=== PATIENT | female | born 1980 | race Hispanic/Latino ===

== ENCOUNTER 2016-06-01 07:08 | Inpatient (IN) | payer MEDICAID ==
[~2016-06-01] VITALS: Ht 142.2 cm; Wt 66.2 kg
[~2016-06-01 07:08] MED LIST: Carboprost 250 mCg/mL Inj IM PRN; Hemorrhage Kit, Post Partum XX ONE; Methylergonovine 0.2 mg/mL Inj IM PRN; OMEP20CA11 PO; Oxytocin 10 Unit/mL Inj IM PRN; PREN1TAB47; Sodium Citrate-Citric Acid 15 mL Solution PO SCH; antacid PO
[2016-06-01] MEDS: Lactated Ringer's 1,000 ML IV SCH ×4 (07:39→19:41)
[2016-06-01 07:51] LABS: Mean Corpuscular Hemoglobin 27.5 pg (27.0-35.0); Mean Corpuscular Volume 81.7 fL (81-100)
[2016-06-01] MEDS ORDERED: CeFAZolin Inj 2 GM in IV Premix 1 EACH IV ONE (09:00)
[2016-06-01] MEDS ORDERED: Sodium Citrate-Citric Acid 15 mL Solution PO SCH (09:03)
[2016-06-01] MEDS ORDERED: fentaNYL-PF 50 mCg/mL 2 mL Inj IVPUSH PRN (10:00)
[2016-06-01] MEDS ORDERED: EPHEDrine Sulfate 50 mg/mL Inj IVPUSH PRN (10:00)
[2016-06-01] MEDS ORDERED: Atropine 0.4 mg/mL Inj IV PRN (10:00)
[2016-06-01] MEDS ORDERED: Ondansetron 2 mg/mL 2 mL Inj IVPUSH PRN (10:00)
--- NOTE | 2016-06-01 10:00 | PCM.HPANE ---
Patient Data Date of Service: Jun 01, 2016 (929) Surgeon Admitting Provider:Macy Rachel MD Attending Provider:Macy Rachel MD Primary Care Physician:Gem Other Provider:Deedee Garcia Anesthesia Reason for Visit Repeat C/S Wants Tubal Ligation REPEAT C/S WANTS TUBAL LIGATION Ht/WT & BMI Height (Feet): 4 Height (Inches): 10 Weight (Kilograms): 65 Body Mass Index Allergies Uncoded Allergies: LEVO (Allergy, Unknown, 12/01/15) Past Anesthesia History Anesthesia History: Denies:: Abnormal Airway, Anesthesia Reactions, Difficult Intubation, Fam Anesthesia Reaction, Fam Malignant Hypertherm, Malignant Hyperthermia Diabetes History Hx Diabetes?: No MRSA MRSA: No Medications Hypertension Medication: No Home Meds Incl Beta Sole: No Active Scripts Omeprazole 20 Mg Capsule.dr20 Mg PO DAILY #30 CAPSULE Ref 0 Prov:Jace Harvey MD 12/14/15 Reported Medications [antacid] No Conflict Check PO PRN Ref 0 01/16/09 Vit/Fe Fumarate/Fa-Expunged Drug, Do (-Expunged Drug, Do Not Renew!)1 Tab Tablet DAILY Ref 0 01/16/09 History History of ENT Problems?: No HEENT History: Denies:: Abnormal Airway Cataracts Difficult Intubation Dysphagia Glaucoma Hearing Problem Sinus Problem TMJ Denture Type: None Teeth Condition: Within Normal Limits Hx of Heart Problems?: No Cardiovascular History: Denies:: AICD Abdominal Aortic Aneurism Atrial Fibrillation Cardiac Surgery Chest Pain Congestive Heart Failure Coronary Artery Disease Edema Heart Murmur Hypertension Irregular Heartbeat Pacemaker Peripheral Vascular Rheumatic Fever Thrombophlebitis Valvular Heart Disease Hx of Respiratory Problem?: No Respiratory History: Denies:: Asthma COPD Chest Surgery Cough Dyspnea Emphysema Hemoptysis Oxygen Administration Pneumonia Pulmonary Embolism Tuberculosis Use of C-PAP Machine Use of Inhalers / NEBS Hx Neurologic Problems?: No Neurological History: Denies:: Alzheimer's Disease CVA Dementia Dizziness Headaches Multiple Sclerosis Parkinson's Disease Peripheral Neuropathy Seizures TIA Hx of GI Problems?: No Gastrointestinal History: Denies:: Cirrhosis Diverticulitis Gall Bladder Disease Gastroesphageal Reflux Gastrointestinal Bleeding Heartburn Hepatitis Hiatal Hernia Liver Disease Rectal Bleeding Hx of Problems?: No Genitourinary History: Denies:: HX of Hemodialysis Kidney Stones Urinary Tract Infection Female Hx: Positive for:: Currently (repeat Csection) Hx Musculoskeletal Problems?: No Musculoskeletal History: Denies:: Back Injury Degenerative Joint Fibromyalgia Joint Replacement Musculoskeletal Trauma Myasthenia Gravis Osteoarthritis Rheumatoid Arthritis Systemic Lupus Hx of Psycho/Social Problems?: No Psycho Social History: Denies:: Anxiety Bipolar Disorder Hx Depression Suicide Attempt Hx Surgeries?: Yes (Csection x2) Hx Any Other Health Problems?: No Other History: Denies:: Cancer Endocrine Disease Hospitalization Thyroid Disease History Blood Transfusions: Denies:: Accept Blood Products? Blood Transfuse Reaction Blood Transfusions Hx Diabetes: No Hx Alcohol Use: No Smoking Status: Unknown if Ever Smoker Stop/Bang Treated for Sleep Apnea?: No Do You Have a CPAP Machine?: No S-Snoring: Do You Snore Loudly: No T-Tired: feel tired, fatigued: No O-Obsered: Observed not breath: No P-Blood Pressure: treated: No JOSEFA Risk Assessment: Low Risk, <3 Yes Risk Assessment Category Category 1A: Patient has history of documented sleep apnea, and HAS NOT received any narcotic, sedative or anesthesia administration during this stay. Category 1B: Patient has history of documented sleep apnea, and HAS received any narcotic , sedative or anesthesia administration during this stay Category 2: Patient has SUSPECTED Obstructive Sleep Apnea, and HAS received any narcotic , sedative or anesthesia administration during this stay. Category 3: Patient has SUSPECTED Obstructive Sleep Apnea and HAS NOT received narcotic, sedative or anesthesia administration during this stay. Category 4: Outpatient in Procedural Areas with known sleep apnea or who screen positive for High Risk via the STOP/BANG questionnaire. Exam Exam General Appearance: Alert, Oriented X3, Cooperative HEENT/AIRWAY: MP 1 Lungs: Clear to Auscultation Heart: Exam Unremarkable Meds/Labs/Diagnostics Admission Meds Current Medications Lactated Ringer's (Lr) 1,000 ml @ 125 mls/hr Q8H IV Last administered on 09:08; Start 06/01/16 at 06:00; Stop 06/01/16 at 13:59 Citric Acid/ Sodium Citrate (Bicitra) 30 ml PREOP PO Last administered on 09:09; Start 06/01/16 at 09:03; Stop 06/01/16 at 09:04; Status DC Labs Test 06/01/16 07:30 White Blood Count 6.5th/mm3 (3.8-10.1) Red Blood Count 4.69mil/mm3 (3.90-5.20) Hemoglobin 12.9g/dL (12.0-15.6) Hematocrit 38.3% (35.0-46.0) Mean Corpuscular Volume 81.7fL (81-100) Mean Corpuscular Hemoglobin 27.5pg (27.0-35.0) Mean Corpuscular Hemoglobin Concent 33.7% (32.0-37.0) Red Cell Distribution Width 14.5% (12.3-15.4) Platelet Count 231bil/L (150-400) Plan Impression Patient chart reviewed, patient interviewed and anesthestic plan with risks, benefits, and alternatives discussed, and informed consent obtained. NPO per Anesth. Guidelines: Yes ASA Physical Status: ASA2 Mod Systemic Disease Anesthetic Plan: SAB Bene/Risks/Altern/Consents: Yes HP Complete Prior to Induction: Yes Kolby Ward MD Jun 01, 2016 10:00
--- NOTE | 2016-06-01 10:00 | HP ---
[address] [address] HISTORY AND PHYSICAL PATIENT: PREETI FULLER : 1980 MR#: [id number] ADMIT: 06/01/2016 JOB ID: [id number] CHIEF COMPLAINT: The patient presented for scheduled repeat section. HISTORY OF PRESENTING ILLNESS: This is a 35 years old 3, para 2-0-0-2 at 39 weeks and 0 days with expected date of delivery of June 08, 2016 dated by last menstrual period and consistent with 8 week ultrasound. complicated with: 1. Prior 2 sections. 2. GERD gallbladder disease was ruled out except for small sludge by ultrasound and symptoms improved with ranitidine. Hepatitis panel negative. Possible fatty liver on ultrasound. 3. Advanced maternal age. 4. History of preeclampsia in previous . 5. Constipation. 6. Elevated 1 hour diabetes screening, 3 hours glucose tolerance test within normal limits. 7. Vitamin D deficiency. Today the patient denies any complaints. No contractions. No vaginal bleeding. No loss of fluid. Good movement. PAST GYNECOLOGIC HISTORY: Last menstrual period September 02, 2015 regular menstrual cycles was not on control at the time of conception. No history of abnormal Pap smear. Last Pap smear was April 16, 2014. PAST OBSTETRIC HISTORY: 1. First was 2016, term , delivered via primary section for arrest of dilatation. Outcome female infant 8.4 pounds, had epidural. Delivery was at [facility]. was complicated with preeclampsia and anemia. 2. Second was 2008. It was a term delivered via repeat section under regional anesthesia. Outcome female infant delivered at [facility] weight 8 pounds 3 ounces. Complications none. The indication for the was previous section and declined vaginal after section. PAST MEDICAL HISTORY: GERD, constipation, low vitamin D, history of preeclampsia in previous . REVIEW OF SYSTEMS: A 10-point review of systems negative except for the items mentioned in the history of presenting illness. FAMILY HISTORY: Noncontributory. PAST SURGICAL HISTORY: Previous sections x2. ALLERGIES: Allergic to FLUOROQUINOLONE reaction rash. MEDICATIONS: 1. vitamins. 2. Vitamin D 2000 units daily. 3. Ranitidine p.r.n. LABORATORIES: Blood type is O positive. Antibody screening negative. Rubella immune. RPR nonreactive. Hepatitis B surface antigen negative. HIV nonreactive. Urine culture contaminated, no evidence of infection. Hematocrit 35% at 26 weeks. Quad screen negative for trisomy 21, 18, and neural tube defect. Gonorrhea and chlamydia screening negative on December 14, 2015. Group B strep positive on May 17, 2016. Diabetes screening at 26 weeks was elevated at 171, 3 hour glucose tolerance test within normal limits; fasting 61, 1 hour 160, 2 hours 123, 3 hours 62. Vitamin D low at 19 on January 13, 2016. Hepatitis panel within normal limits. Baseline preeclampsia labs within normal limits. May 03, 2016 protein creatinine ratio 0.089 within normal limits. PHYSICAL EXAMINATION: Alert and oriented to time, place, and person. Vital signs: Blood pressure 120/62, heart rate 66, temperature 36.5. heart tones baseline 130 moderate variability, positive accelerations and no decelerations category 1. Contractions every 7-8 minutes. Head normocephalic, atraumatic. Neck is supple. Chest equal air entry bilaterally. No added sounds. Cardiovascular regular rate and rhythm, S1 plus S2 plus zero. Abdomen gravid, no tenderness. Lower extremities +1 edema bilaterally. ASSESSMENT: This is a 36 years old female 3, para 2-0-0-2 at 39 weeks and 0 days with previous 2 sections. Multiparity desires permanent sterilization. Here for a scheduled repeat section and bilateral tubal ligation. The risks, benefits, and alternatives of repeat section and tubal ligation were reviewed with the patient in details. All questions were answered. Informed consent were signed. Sterilization consent was signed on March 14, 2016, and the patient was counseled again today about risk and benefits and alternatives of tubal ligation including LARC and male sterilization. Patient desires to proceed with a tubal ligation and repeat section as scheduled today. All questions were answered. Surgical consent was signed. TANK
[2016-06-01] MEDS ORDERED: LANOlin HPA 7 Gm Ointment TOPICAL PRN (11:45)
[2016-06-01] MEDS ORDERED: Oxytocin 30 Units/500 mL LR 30 UNITS in IV Premix 1 EACH IV PRN (11:45)
[2016-06-01] MEDS ORDERED: Hemorrhage Kit, Post Partum XX ONE (11:45)
[2016-06-01] MEDS ORDERED: Methylergonovine 0.2 mg/mL Inj IM PRN (11:45)
[2016-06-01] MEDS ORDERED: Oxytocin 10 Unit/mL Inj IM PRN (11:45)
[2016-06-01] MEDS ORDERED: Carboprost 250 mCg/mL Inj IM PRN (11:45)
[2016-06-01] MEDS ORDERED: Sodium Chloride LOK Flush 10 mL Syringe IVFLUSH PRN (11:45)
[2016-06-01] MEDS ORDERED: hydrOXYzine Pamoate 25 mg Capsule PO PRN (11:45)
[2016-06-01] MEDS ORDERED: Oxytocin 30 Units/500 mL LR 30 UNITS in IV Premix 1 EACH IV SCH (11:50)
[2016-06-01] MEDS ORDERED: Promethazine 50 mg Rectal Suppository RECTAL PRN (11:55)
[2016-06-01] MEDS ORDERED: Acetaminophen IV 1,000 MG in IV Premix 1 EACH IV PRN (11:55)
[2016-06-01] MEDS ORDERED: Morphine PF 1 mg/mL 10 mL Inj ONE (12:42)
[2016-06-01] MEDS ORDERED: Oxytocin 10 Unit/mL Inj ONE (12:42)
[2016-06-01] MEDS ORDERED: Phenylephrine/NS 100 mCg/mL 10 mL Syringe IVPUSH ONE (12:42)
[2016-06-01] MEDS ORDERED: Ondansetron 2 mg/mL 2 mL Inj ONE (12:42)
[2016-06-01] MEDS ORDERED: EPHEDrine/NS 5 mg/mL 5 mL Syringe ONE (12:42)
--- NOTE | 2016-06-01 13:45 | OP ---
[address] [address] OPERATIVE REPORT PATIENT: PREETI FULLER : 1980 MR#: [id number] ADMIT: 06/01/2016 JOB ID: [id number] DATE OF SURGERY: 06/01/2016 PREOPERATIVE DIAGNOSIS(ES): 1. Previous deliveries x2. 2. Multiparity, desires permanent sterilization. 3. Term intrauterine . 4. Group B strep positive. 5. Advanced maternal age. POSTOPERATIVE DIAGNOSIS(ES): 1. Previous deliveries x2. 2. Multiparity, desires permanent sterilization. 3. Term intrauterine . 4. Group B strep positive. 5. Advanced maternal age. PROCEDURE: Repeat section. Unable to perform the tubal ligation part of the procedure secondary to extensive intraperitoneal adhesions. COMPLICATIONS: None. SURGEON: Macy Rachel MD TARGET SETTER: Janay John MD Gerontology Aide was required for retraction and exposure and safe delivery of the and completion of the procedure. ANESTHESIA: Spinal. FLUID: 2200 mL of crystalloid fluid IV. BLOOD LOSS: 700 mL. URINE OUTPUT: 200 mL clear urine. SPECIMEN: Placenta was discarded. FINDINGS: Extensive adhesions were noted between the serosal surface of the uterus and the peritoneum. Extended into the upper uterine segment and bilaterally in the sides of the uterus. Female was in transverse lie presentation, was delivered in footling breech. Apgars 8 and one minute and 10 at five minutes. Weight 2992 g, equivalent to 6 pounds 10 ounces. Placenta was delivered spontaneously intact with a three-vessel cord. Amniotic fluid was clear. There was no nuchal cord. Extensive adhesions limited the exposure of the uterus, and exteriorization of the uterus was impossible. Was not able to visualize the tube or the ovaries or the uterus besides a small window in the midlle segment of the anterior uterine wall where the uterine incision was made and the was delivered through. DESCRIPTION OF PROCEDURE: After informed consent was obtained, the patient was taken to the operation room. She was placed under spinal anesthesia. Then, she was placed in dorsal lithotomy position. Pelvic preparation was performed. Then, patient was placed in supine position with left lateral tilt. Abdominal preparation was performed, and patient was draped in usual sterile fashion. After confirmation of adequacy of anesthesia, a Pfannenstiel skin incision was made along the line of the previous incision scar. The incision was carried down to the fascia with Bovie cautery. The initial fascial incision was made with a scalpel and was extended bilaterally with curved Love scissors in curvilinear fashion. The inferior aspect of the fascia layer was grasped in either side of the midline, and the rectus muscles were dissected off the underlying fascia with blunt and sharp dissection. Then, the Bovie cautery was removed and placed in the superior aspect of the fascial layer that was dissected off the underlying rectus muscles with blunt and sharp dissection. The rectus muscles were then in the midline. The peritoneum was identified and was entered in an area clear of the vascularity or any underneath adhesions or viscera. The peritoneal opening was extended carefully at area clear of vascularity and adhesions. Extensive adhesions were noted at the anterior uterine wall, extended to the peritoneum. Attempt to lyse the adhesions was performed, but the adhesions were extensive and dense. Then, attention was turned to the bladder reflection that was not able to be localized secondary to extensive adhesions in the lower uterine segment. At this point, the anterior uterine wall was identified and defined in an area clear of any adhesions. The incision was made in a transverse fashion. the incision was made high in the middle uterine segment. Clear amniotic fluid was noted. Uterine incision was extended with bandage scissors guided by the surgeon's finger. Amniotomy was performed. Infant was in a transverse lie. Attempt to convert to cephalic failed. Then, both feet were grasped and the infant was converted to footling breech, delivered through the uterine incision in the usual maneuver for breech presentation. After delivery of the arms, difficulty encountered in the delivery of the head which was flexed and with assistance of fundal pressure, the head was delivered. Cord was clamped and cut, and was handed off to the awaiting intensive care unit team. Apgars were 8 at one minute and 10 at five minutes. Upper extremity reflexes were normal as per intensive care unit team evaluation. Cord segment was collected for gases. Cord blood was collected for typing. The placenta was delivered spontaneously intact. The uterus fundus was palpable through the abdomen externally. I was not able to assess the uterine fundus by palpation in the abdomen secondary to the adhesion that limited access to the fundus or to the adnexa. The uterine incision was then closed with 0-Vicryl in a running interlocking fashion. Then, a second imbricating layer was performed with 0-Vicryl with good hemostasis. An area of adhesion that was lysed earlier in the anterior uterine wall noted to be bleeding that was controlled with running interlocking stitches of 0-Vicryl. Superficial bleeders were controlled with the Bovie cautery. Attempt to evaluate for the adhesions again to see if it is possible to do more lysis to reach for the tube, but there was no clear window to do any lysis of adhesions. Patient was informed at this point that tubal ligation and sterilization procedure will not be able to be performed today secondary to the extensive adhesions. Irrigation was performed. Hemostasis was ensured. Then, FloSeal was placed on the uterine incision to confirm hemostasis. The subfascial layer was examined and hemostasis was ensured. The uterine incision was re-examined and confirmed to be hemostatic. Then, the rectus muscles were approximated in the midline with interrupted stitches of 2-0 chromic. The fascia was closed with 0-Vicryl in a running fashion. The subcutaneous layer was approximated with simple interrupted stitches of 2-0 chromic. The skin was approximated with miah after irrigation of the subcutaneous layer. All instrument, needle, and sponge counts were correct x2. Macy Rachel MD, was present and scrubbed for the entire procedure. TANK
--- NOTE | 2016-06-01 15:46 | PCM.ANEP1 ---
Post Anesthesia Phase 1 PACU Phase 1 Assessment Date of Service: Jun 01, 2016 (6430) Vital Signs AVSS, see RN record or paper anesthesia record Level of Alertness: Awake, talking STYLES's with Equal Strength: No Pain: No Nausea or Vomiting: No Cardiovascular Function and Hy: Yes Oxygen Delivery: Room Air Lungs: Clear to Auscultation Dermatome Level: T10 (Umbilicus) Summary well tolerated SAB Complications: No Follow up Care: No Patient Instructions Provided: Yes (by RN) Kolby Ward MD Jun 01, 2016 15:46
[2016-06-01] MEDS ORDERED: Promethazine 25 mg Rectal Suppository RECTAL PRN (16:08)
[2016-06-02] MEDS: oxyCODONE-Acetamin 5-325 mg Tablet PO PRN ×4 (03:34→18:16)
[2016-06-02] MEDS: Lactated Ringer's 1,000 ML IV SCH ×3 (03:41→19:41)
[2016-06-02 07:26] LABS: Mean Corpuscular Hemoglobin 27.6 pg (27.0-35.0); Mean Corpuscular Volume 83.7 fL (81-100)
[2016-06-02] MEDS: Ascorbic Acid 500 mg Tablet PO SCH (08:00)
--- NOTE | 2016-06-02 13:10 | PCM.PNOBPP ---
Subjective Date of Service Jun 02, 2016 Post : Repeat Ceserean Delivery Lochia: Normal Pain Management: PO pain meds Gastrointestinal: Good Appetite, No N/V Postop Activity: Ambulate without Assist Labs Laboratory Tests 06/02/16 07:15: White Blood Count 9.0, Red Blood Count 3.44, Hemoglobin 9.5, Hematocrit 28.8, Mean Corpuscular Volume 83.7, Mean Corpuscular Hemoglobin 27.6, Mean Corpuscular Hemoglobin Concent 33.0, Red Cell Distribution Width 14.6, Platelet Count 188 Exam Vital Signs Vital Signs BP Systolic 110 BP Diastolic 59 HR 68 Respirations 18 SaO2 99 T 36.8 Vital Signs: VS reviewed, stable Exam Abdomen: Fundus firm Extremities: No edema Heart: Exam Unremarkable General: Alert, Oriented X3 Surgical Wound : Incision General Appearence: [place], Intact, Well Approximated, Incision Healing, No Erythemia, No Discharge OB Post Assessment/Plan Assessment 36 Y POD#1 S/P RCD Postoperative Anemia Appropriate post operative recovery Pain Evaluation: Adequate Pain Control Post plan: Discharge home tomorrow Macy Rachel MD Jun 02, 2016 13:10
[2016-06-03] MEDS: Lactated Ringer's 1,000 ML IV SCH (03:41)
[2016-06-03] MEDS: Ascorbic Acid 500 mg Tablet PO SCH (07:51)
[2016-06-03] MEDS: oxyCODONE-Acetamin 5-325 mg Tablet PO PRN (07:51)
--- NOTE | 2016-06-03 08:59 | PCM.DIOB ---
Obstetrical Disch Instruction Date of Service: Jun 03, 2016 Dates of Hospitalization Date of Hospital Admission Jun 01, 2016 at 07:08 Providers Admitting Physician: Macy Rachel MD Primary Care Physician: Gem Attending Physician: Macy Rachel MD Discharge Diagnosis Discharge Diagnosis status post repeat section Problems: Diet Discharge Diet: No restrictions Activity Discharge Activity-General: Pelvic Rest for 6 weeks (no sex, douching nor tampons), No lifting >10 pounds for 4-6 weeks Dressing and Incisional Care Hygiene: Wash incision with soap & water Follow Up Plan Follow-up Provider (F9): Macy Rachel MD Follow-up appointment: Days (2 days for stapels removal ), Weeks (two ) Call your provider for: Fever or Chills, Shortness of breath, Heavy vaginal bleeding, Heavy bleeding, Epigastric pain, Excessive constipation, Vaginal discomfort, Red painful breasts, Other (headache, change in vision, leg swelling , pain or change in color) Macy Rachel MD Jun 03, 2016 08:59
[2016-06-03] MEDS ORDERED: DOCU-41 PO (09:01)
[2016-06-03] MEDS ORDERED: Ascorbic Acid PO (09:01)
[2016-06-03] MEDS ORDERED: FERR-74 PO (09:01)
[2016-06-03] MEDS ORDERED: IBUP-1827 PO (09:01)
[2016-06-03] MEDS ORDERED: OXYC1TAB24 PO (09:01)
--- NOTE | 2016-06-03 09:02 | PCM.DC.OB ---
Obstetrical Discharge Summary Date of Service Jun 03, 2016 Date of hospital admission Jun 01, 2016 at 07:08 Date of Discharge: Jun 03, 2016 Providers Admitting Physician: Selina Bird MD Primary Care Physician: Gem Attending Physician: Selina Bird MD Hospital Course: Discharge Diagnosis Discharge Diagnosis status post repeat section Post operative Anemia Hospital Course: This is a 36 Y G3 now P3003 Status post repeat section. Unable to perform the tubal ligation part of the procedure secondary to extensive intraperitoneal adhesions. COMPLICATED WITH: 1. Prior 2 sections. 2. GERD gallbladder disease was ruled out except for small sludge by ultrasound and symptoms improved with ranitidine. Hepatitis panel negative. Possible fatty liver on ultrasound. 3. Advanced maternal age. 4. History of preeclampsia in previous . 5. Constipation. 6. Elevated 1 hour diabetes screening, 3 hours glucose tolerance test within normal limits. 7. Vitamin D deficiency. OUTCOME and OPERATIVE FINDINGS: Extensive adhesions were noted between the serosal surface of the uterus and the peritoneum. Extended into the upper uterine segment and bilaterally in the sides of the uterus. Female was in transverse lie presentation, was delivered in footling breech. Apgars 8 and one minute and 10 at five minutes. Weight 2992 g, equivalent to 6 pounds 10 ounces. Placenta was delivered spontaneously intact with a three-vessel cord. Amniotic fluid was clear. There was no nuchal cord. Extensive adhesions limited the exposure of the uterus, and exteriorization of the uterus was impossible. Was not able to visualize the tube or the ovaries or the uterus besides a small window in the anterior wall of the uterus where the uterine incision was made and the infant was delivered through. COMPLICATIONS: None. DISCHARGE DAY EXAM: Postoperative day number 2, patient is ambulating, tolerating regular diet without nausea or vomiting and voiding without difficulty. Pain was well controlled. No chest pain, no headache or change in vision. VS: BP 98/56 HR 74 Respirations 16 Temp 36.9 General: Alert, Oriented X3 Lungs: Clear to Auscultation, Clear to Percussion Heart: Regular Rate/Rhythm, Normal S1, Normal S2 Abdomen: Fundus firm Surgical Wound: Incision General Appearance: Steri Strips, Sutures, Intact, Well Approximated, Incision Healing, No Erythema, No Discharge Extremities: No tenderness/swelling, Edema 1+ Lochia: normal. LABS: CBC Test 06/02/16 07:15 White Blood Count 9.0th/mm3 (3.8-10.1) Red Blood Count 3.44mil/mm3 (3.90-5.20) Hemoglobin 9.5g/dL (12.0-15.6) Hematocrit 28.8% (35.0-46.0) Mean Corpuscular Volume 83.7fL (81-100) Mean Corpuscular Hemoglobin 27.6pg (27.0-35.0) Mean Corpuscular Hemoglobin Concent 33.0% (32.0-37.0) Red Cell Distribution Width 14.6% (12.3-15.4) Platelet Count 188bil/L (150-400) labs: Blood type is O positive. Antibody screening negative. Rubella immune. RPR nonreactive. Hepatitis B surface antigen negative. HIV nonreactive. Urine culture contaminated, no evidence of infection. Hematocrit 35% at 26 weeks. Quad screen negative for trisomy 21, 18, and neural tube defect. Gonorrhea and chlamydia screening negative on December 14, 2015. Group B strep positive on May 17, 2016. Diabetes screening at 26 weeks was elevated at 171, 3 hour glucose tolerance test within normal limits; fasting 61, 1 hour 160, 2 hours 123, 3 hours 62. Vitamin D low at 19 on January 13, 2016. Hepatitis panel within normal limits. Baseline preeclampsia labs within normal limits. May 03, 2016 protein creatinine ratio 0.089 within normal limits. Disposition: home. Discharge Condition: stable. Diet Discharge Diet: No restrictions Activity Discharge Activity-General: Pelvic Rest for 6 weeks (no sex, douching nor tampons), No lifting >10 pounds for 4-6 weeks Dressing and Incisional Care Hygiene: Wash incision with soap & water Follow Up Plan Follow-up Provider (F9): Selina Bird MD Follow-up appointment: Days (2 days for stapels removal ), Weeks (two ) Call your provider for: Fever or Chills, Shortness of breath, Heavy vaginal bleeding, Heavy bleeding, Epigastric pain, Excessive constipation, Vaginal discomfort, Red painful breasts, Other (headache, change in vision, leg swelling , pain or change in color) ([antacid]) PO PRN (Reported) ([Ascorbic Acid]) 500 MG TABLET 500 MG PO DAILYWM Prescribed by: SELINA BIRD MD Docusate Sodium (Colace) 100 Mg Capsule 100 MG PO BID Prescribed by: SELINA BIRD MD Ferrous Sulfate (Feosol) 325 Mg Tablet 325 MG PO BIDWM Prescribed by: SELINA BIRD MD Ibuprofen (Ibuprofen) 600 Mg Tablet 600 MG PO Q6H PRN PRN For Pain Prescribed by: SELINA BIRD MD Omeprazole (Omeprazole) 20 Mg Capsule.dr 20 MG PO DAILY Prescribed by: MICHAEL DAVILA MD Vit/Fe Fumarate/Fa-Expunged Drug, Do (-Expunged Drug, Do Not Renew!) 1 Tab Tablet DAILY (Reported) oxyCODONE-Acetaminophen 5-325 mg (oxyCODONE-Acetaminophen 5-325 mg) 1 Each Tablet 1-2 TAB PO Q4H PRN PRN For Pain Prescribed by: MD Virginie GALVEZ Omaima A MD Jun 03, 2016 09:02
[2016-06-03 09:07] VITALS: BP 98/56; PULSE 74; RESP 16
== END 2016-06-03 09:50 | disposition home or self-care (01) | DRG 766 ==
LOC: FBC 07:08 → EDSTATUS 09:30
PROVIDERS: ADMIT Obstetrics & Gynecology; ATTEND Obstetrics & Gynecology
PROC: 10D00Z1 Extraction of Products of Conception, Low, Open Approach (ICD-10-PCS; 2016-06-01)
PROC: 0UN90ZZ Release Uterus, Open Approach (ICD-10-PCS; principal; 2016-06-01 09:30)
DX: O32.8XX0 Maternal care for other malpresentation of fetus, not applicable or unspecified (principal); D64.9 Anemia, unspecified; Z37.0 Single live birth; O99.824 Streptococcus B carrier state complicating childbirth; O34.211 Maternal care for low transverse scar from previous cesarean delivery; O90.81 Anemia of the puerperium; N73.6 Female pelvic peritoneal adhesions (postinfective); O99.89 Other specified diseases and conditions complicating pregnancy, childbirth and the puerperium; Z3A.39 39 weeks gestation of pregnancy